=== PATIENT | male | born 1995 | race American Indian/Alaskan Native ===

== ENCOUNTER 2018-03-30 12:58 | Emergency (ER) | payer MEDICAID ==
[2018-03-30 13:05] VITALS: BP 109/75; PULSE 85; RESP 18; TEMP 97.5; O2SAT 98
--- NOTE | 2018-03-30 13:09 | C.PDOC ---
History Of Present Illness Mr. Houston is a 22 year old male with a PMHx of Asthma who presents complaining of "URI" since 2pm yesterday. His symptoms include elevated Temp (Tmax - 100), Sore throat, body aches, dry cough, and chest tightness. He has been using an unspecified "Cold & Flu" medication to treat his symptoms which he states provided moderate relief for his tore throat for 1.5 hours. He denies any headache, chest pain, SOB, abdominal pain, n/v, changes in bowel habits, urinary symptoms. ROS: As stated above PMHx: Asthma PSHx: Dental Surgery x 2 Allergies: NKDA SocialHx: Denies tobacco use, EtOH Use (once a month), admits to occasional marijuana use Meds: Albuterol Rescue IH PMD: Dr. Sancho Ceballos. <Trish Miller - Last Filed: 03/30/18 15:39> <Trish Miller - Last Filed: 03/30/18 15:39> <Abhilash Johansen - Last Filed: 04/01/18 13:33> Time Seen by Provider: 03/30/18 13:09 Chief Complaint (Nursing): Flu-like Symptoms Past Medical History Vital Signs: Last Vital Signs Temp 97.5 F L 03/30/18 13:01 Pulse 85 03/30/18 13:01 Resp 18 03/30/18 13:01 BP 109/75 03/30/18 13:01 Pulse Ox 98 03/30/18 13:01 - Medical History PMH: Asthma Family History: States: Unknown Family Hx - Social History Hx Alcohol Use: Yes Hx Substance Use: Yes - Immunization History Hx Tetanus Toxoid Vaccination: No Hx Influenza Vaccination: No Hx Pneumococcal Vaccination: No <Trish Miller - Last Filed: 03/30/18 15:39> Vital Signs: Last Vital Signs Temp 97.5 F L 03/30/18 13:01 Pulse 85 03/30/18 13:01 Resp 18 03/30/18 13:01 BP 109/75 03/30/18 13:01 Pulse Ox 98 03/30/18 15:55 <Abhilash Johansen - Last Filed: 04/01/18 13:33> Physical Exam - Physical Exam Appears: Non-toxic, No Acute Distress Skin: Normal Color, Warm Head: Atraumatic, Normacephalic Ear(s): Bilateral: TM Obscured By Wax Nose: Normal Oral Mucosa: Moist Tongue: Normal Appearing Lips: Normal Appearing Teeth: Normal Dentition Gingiva: Normal Appearing Throat: Erythema, Exudate, No Mass, Other (enlarged Tonsils. No Hot Potato Voice, no Tonsil Abscess. ) Lymphatic: Adenopathy ((+)Tender Ant. Cervical. No Posterior Cervical Lymphyadenopathy ) Cardiovascular: Rhythm Regular Respiratory: Normal Breath Sounds, No Rales, No Rhonchi Gastrointestinal/Abdominal: Normal Exam, Bowel Sounds, Soft, No Tenderness, No Mass, No Guarding, No Rebound Neurological/Psych: Oriented x3, Normal Speech, Normal Cognition <Trish Miller - Last Filed: 03/30/18 15:39> ED Course And Treatment O2 Sat by Pulse Oximetry: 98 <Trish Miller - Last Filed: 03/30/18 15:39> Medical Decision Making Medical Decision Making: Flu-Like Symptoms/Sore Throat -Rapid Strep-POSITIVE -Rapid Flu - NEGATIVE -Cepacol Lozenges Reassessment Patient is positive for Strep Throat. Currently Afebrile with stable vital signs. No hot potato voice, no tonsilar abscess. Will send home with Amoxicillin ER (Moxatag). 775mg for 10 days. Patient asked to follow up with PCP within 2-3 days. <Trish Miller - Last Filed: 03/30/18 15:39> Disposition Counseled Patient/Family Regarding: Studies Performed, Diagnosis, Need For Followup, Rx Given, Smoking Cessation - Disposition Disposition Time: 15:29 <Trish Miller - Last Filed: 03/30/18 15:39> <Abhilash Johansen - Last Filed: 04/01/18 13:33> - Disposition Referrals: Parish Ceballos MD [Staff Provider] - Disposition: HOME/ ROUTINE Condition: FAIR Additional Instructions: Please take antibiotics to completion even if your symptoms resolve. Please follow up with your primary medical provider within 2-3 days of discharge. 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 (22 yr old male p.w sore throat and uri symptoms. No peritonsillar abscess or hot potatoe voice or posterior lymphdenopathy noted. +Strep. Rx w/ outpt abx. No dysphagia or odynophagia.) <Abhilash Johansen - Last Filed: 04/01/18 13:33>
[2018-03-30] MEDS ORDERED: Benzocaine/Menthol (Cepacol) Lozenge MT ONE (13:42)
[2018-03-30 15:21] LABS: INFLUENZA A B NEGATIVE FOR FLU A/B (NEGATIVE)
== END 2018-03-30 16:02 | disposition home or self-care (01) ==
LOC: C.ER 12:58
DX: J02.0 Streptococcal pharyngitis (principal)

== ENCOUNTER 2018-05-03 18:51 | Emergency (ER) | payer MEDICAID | END 2018-05-03 20:47 | disposition home or self-care (01) | LOC: C.ER 18:51 ==

== ENCOUNTER 2018-05-07 06:33 | Emergency (ER) | payer MEDICAID ==
[2018-05-07 06:41] VITALS: PULSE 67
[2018-05-07] MEDS ORDERED: Sodium Chloride 0.9% 1,000 ML IV STA (07:30)
[2018-05-07] MEDS ORDERED: Sodium Chloride 0.9% 1,000 ML ONE (07:34)
[2018-05-07 08:38] LABS: BASO % 0.7 % (0.0-2.0); EOS # 0.1 K/uL (0.0-0.7); EOS % 1.2 % (0.0-4.0); HEMOGLOBIN 12.6 g/dL (12.0-18.0); LYMPH # 1.4 K/uL (1.0-4.3); LYMPH % 29.9 % (20.0-40.0); MEAN CORPUSCULAR HEMOGLOBIN 29.1 pg (27.0-31.0); MEAN CORPUSCULAR HGB CONC 32.7 g/dL (33.0-37.0); MEAN PLATELET VOLUME 9.5 fL (7.2-11.7); MONO # 0.4 K/uL (0.0-0.8); MONO % 9.2 % (0.0-10.0); NEUT # 2.7 K/uL (1.8-7.0); NRBC % 0.1 % (0.0-2.0); RBC 4.34 Mil/uL (4.40-5.90); RED CELL DISTRIBUTION WIDTH 12.9 % (11.5-14.5); WHITE BLOOD COUNT 4.7 K/uL (4.8-10.8)
[2018-05-07 08:48] LABS: ALB/GLOB RATIO 1.2 (1.0-2.1); ALBUMIN 4.1 g/dL (3.5-5.0); ALT/SGPT 9 U/L (21-72); AST/SGOT 25 U/L (17-59); BLOOD UREA NITROGEN 15 mg/dL (9-20); CALCIUM 9.5 mg/dl (8.6-10.4); GFR NON-AFRICAN AMERICAN > 60; LIPASE 10 U/L (23-300)
[2018-05-07 08:54] LABS: URINE AMORPHOUS SEDIMENT RARE /ul (<OCC); URINE BILIRUBIN NEGATIVE (NEGATIVE); URINE BLOOD NEGATIVE (NEGATIVE); URINE CLARITY Hazy (Clear); URINE COLOR Yellow (YELLOW); URINE GLUCOSE (UA) NORMAL (Normal); URINE LEUKOCYTE ESTERASE NEG Leu/uL (Negative); URINE PROTEIN 1+ mg/dL (NEGATIVE)
[2018-05-07 09:02] VITALS: BP 97/55; RESP 20; TEMP 97.5; O2SAT 98
--- NOTE | 2018-05-07 09:37 | C.PDOC ---
History Of Present Illness 22 y/o male comes in for several episodes of vomiting since yesterday. Patient states that yesterday he was eating some fast food burger and fries, and vomited an hour later. He reports he vomited all night but the vomiting subsided in the morning. Patient denies fever, chills, or diarrhea. Time Seen by Provider: 05/07/18 07:15 Chief Complaint (Nursing): Abdominal Pain History Per: Patient History/Exam Limitations: no limitations Onset/Duration Of Symptoms: Days Current Symptoms Are (Timing): Still Present Past Medical History Reviewed: Historical Data, Nursing Documentation, Vital Signs Vital Signs: Last Vital Signs Temp 97.5 F L 05/07/18 09:01 Pulse 67 05/07/18 09:01 Resp 20 05/07/18 09:01 BP 97/55 L 05/07/18 09:01 Pulse Ox 98 05/07/18 09:01 - Medical History PMH: Asthma Family History: States: No Known Family Hx - Social History Hx Alcohol Use: Yes Hx Substance Use: Yes - Immunization History Hx Tetanus Toxoid Vaccination: No Hx Influenza Vaccination: No Hx Pneumococcal Vaccination: No Review Of Systems Except As Marked, All Systems Reviewed And Found Negative. Constitutional: Negative for: Fever, Chills Gastrointestinal: Positive for: Vomiting. Negative for: Abdominal Pain, Diarrhea Physical Exam - Physical Exam Appears: Non-toxic, No Acute Distress Skin: Warm, Dry Head: Atraumatic, Normacephalic Eye(s): bilateral: Normal Inspection Oral Mucosa: Moist Throat: No Erythema Neck: Supple Cardiovascular: Rhythm Regular, No Murmur Respiratory: Normal Breath Sounds, No Rales, No Rhonchi, No Wheezing Gastrointestinal/Abdominal: Tenderness (mild epigastric tenderness), No Guarding, No Rebound Extremity: Bilateral: Atraumatic, Normal ROM Neurological/Psych: Oriented x3, Normal Speech ED Course And Treatment - Laboratory Results Result Diagrams: 05/07/18 08:26 05/07/18 08:26 Lab Results: Total Bilirubin 0.9 mg/dL (0.2-1.3) 05/07/18 08:26 AST 25 U/L (17-59) 05/07/18 08:26 ALT 9 U/L (21-72) L D 05/07/18 08:26 Alkaline Phosphatase 99 U/L (38-126) 05/07/18 08:26 Total Protein 7.6 g/dL (6.3-8.3) 05/07/18 08:26 Albumin 4.1 g/dL (3.5-5.0) 05/07/18 08:26 Globulin 3.5 gm/dL (2.2-3.9) 05/07/18 08:26 Albumin/Globulin Ratio 1.2 (1.0-2.1) 05/07/18 08:26 Lipase 10 U/L (23-300) L 05/07/18 08:26 Urine Color Yellow (YELLOW) 05/07/18 08:26 Urine Clarity Hazy (Clear) 05/07/18 08:26 Urine pH 7.0 (5.0-8.0) 05/07/18 08:26 Ur Specific [place] 1.028 (1.003-1.030) 05/07/18 08:26 Urine Protein 1+ mg/dL (NEGATIVE) H 05/07/18 08:26 Urine Glucose (UA) Normal mg/dL (Normal) 05/07/18 08:26 Urine Ketones Trace mg/dL (NEGATIVE) 05/07/18 08:26 Urine Blood Negative (NEGATIVE) 05/07/18 08:26 Urine Nitrate Negative (NEGATIVE) 05/07/18 08:26 Urine Bilirubin Negative (NEGATIVE) 05/07/18 08:26 Urine Urobilinogen 4.0 mg/dL (0.2-1.0) 05/07/18 08:26 Ur Leukocyte Esterase Neg Dorian/uL (Negative) 05/07/18 08:26 Urine WBC (Auto) 6 /hpf (0-5) H 05/07/18 08:26 Urine RBC (Auto) 1 /hpf (0-3) 05/07/18 08:26 Amorphous Sediment Rare /ul (<OCC) H 05/07/18 08:26 O2 Sat by Pulse Oximetry: 98 (RA) Pulse Ox Interpretation: Normal Progress Note: Labs and urinalysis ordered. Patient was given IV fluids, protonix, and zofran IV. On re-evaluation, patient is feeling better and tolerating PO. Patient will be discharged home. Disposition - Disposition Referrals: Kimberly Hagen MD [Staff Provider] - Disposition: HOME/ ROUTINE Disposition Time: 09:34 Condition: STABLE Additional Instructions: Follow up with PMD within 1-2 days. Return to ED if feel worse. 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 - Scribe Statement The provider has reviewed the documentation as recorded by the Scribe Rosa Otreo All medical record entries made by the Zafaribshanda were at my direction and personally dictated by me. I have reviewed the chart and agree that the record accurately reflects my personal performance of the history, physical exam, medical decision making, and the department course for this patient. I have also personally directed, reviewed, and agree with the discharge instructions and disposition.
== END 2018-05-07 09:41 | disposition home or self-care (01) ==
LOC: C.ER 06:33
DX: R11.2 Nausea with vomiting, unspecified (principal)
CPT/HCPCS: 80053; 81001; 83690; 85025; 96361; 96374; 96375; 99285; C9113; J2405; J7030

== ENCOUNTER 2018-06-30 11:22 | Emergency (ER) | payer MEDICAID ==
[2018-06-30 11:37] VITALS: BP 101/66; PULSE 61; RESP 18; TEMP 97.4; O2SAT 98
--- NOTE | 2018-06-30 12:19 | RAD ---
Date of service: 06/30/2018 PROCEDURE: Right ring finger radiographs. HISTORY: s/p trauma COMPARISON: None. TECHNIQUE: AP radiograph of the right hand, as well as spot oblique and lateral images of ring finger were obtained. 3 views obtained. FINDINGS: RIGHT RING FINGER: Normal right ring finger, without fracture or focal lesion. Remainder of the right hand (as seen on the AP view) grossly unremarkable. JOINTS: Normal. SOFT TISSUES: Normal. OTHER FINDINGS: None. IMPRESSION: Normal right ring finger radiographs.
--- NOTE | 2018-06-30 12:33 | C.PDOC ---
History Of Present Illness 22 year old male presents to ED with complaint of right ring finger pain for the past 7 days. Patient states that he was playing basketball over the weekend and caught the ball improperly. He states that he noticed swelling and felt pain of the third forth digit. He states that he iced the area when it happened but continues to have pain. He now has noticed a slight deformity in his right ring finger which brings him to the ED. He rates the pain as a 3/10 now. He states that he has not taken anything for pain. Patient denies any other injuries, weakness, numbness, or tingling. Chief Complaint (Nursing): Finger,Hand,&Wrist History Per: Patient History/Exam Limitations: no limitations Onset/Duration Of Symptoms: Days (6) Current Symptoms Are (Timing): Still Present Quality: "Pain" Pain Scale Rating Of: 3 Past Medical History Reviewed: Historical Data, Nursing Documentation, Vital Signs Vital Signs: Last Vital Signs Temp 97.4 F L 06/30/18 11:33 Pulse 61 06/30/18 11:33 Resp 18 06/30/18 11:33 BP 101/66 06/30/18 11:33 Pulse Ox 98 06/30/18 11:33 Primary Care Provider: Sara Hagen - Medical History PMH: Asthma Surgical History: No Surg Hx Family History: States: Unknown Family Hx - Social History Hx Alcohol Use: Yes Hx Substance Use: Yes - Immunization History Hx Tetanus Toxoid Vaccination: No Hx Influenza Vaccination: No Hx Pneumococcal Vaccination: No Review Of Systems Constitutional: Negative for: Fever, Chills, Weakness Musculoskeletal: Positive for: Hand Pain (right ring finger pain ), Other (swelling to the right ring finger) Neurological: Negative for: Weakness, Numbness, Headache (head impact) Physical Exam - Physical Exam Appears: Well, Non-toxic, No Acute Distress Skin: Normal Color, Warm, Dry Head: Atraumatic, Normacephalic Eye(s): bilateral: Normal Inspection Neck: Normal ROM, Supple Chest: Symmetrical, No Deformity Cardiovascular: Rhythm Regular Respiratory: Normal Breath Sounds, No Accessory Muscle Use, No Wheezing Extremity: Normal ROM, Tenderness (slight tenderness to tough on the right ring finger, non-erythematous), Capillary Refill (<2 seconds), Deformity (slight deformity to the 4th digit PIP joint of the right hand, no ecchymosis), No Swelling, Other (neurovascular intact) Extremity: Bilateral: Normal Color And Temperature, Normal ROM Pulses: Left Radial: Normal, Right Radial: Normal Neurological/Psych: Oriented x3, Normal Speech, Normal Cognition, Normal Motor, Normal Sensation ED Course And Treatment O2 Sat by Pulse Oximetry: 98 (in RA) Pulse Ox Interpretation: Normal - Other Rad Right Hand 4th digit X-ray X-Ray: Viewed By Me, Read By Radiologist Interpretation: Date of service: 06/30/2018. PROCEDURE: Right ring finger radiographs. HISTORY: s/p trauma. COMPARISON: None. TECHNIQUE: AP radiograph of the right hand, as well as spot oblique and lateral images of ring finger were obtained. 3 views obtained. FINDINGS: RIGHT RING FINGER: Normal right ring finger, without fracture or focal lesion. Remainder of the right hand (as seen on the AP view) grossly unremarkable. JOINTS: Normal. SOFT TISSUES: Normal. OTHER FINDINGS: None. IMPRESSION: Normal right ring finger radiographs. Medical Decision Making Medical Decision Making: Impression: 22 year old male presents to ED with complaint of right ring finger pain for the past 7 days. Plan: Right hand 4th digit X-ray ordered and reviewed- no dislocation or fracture D/W patient results patient verbalized understanding and is stable for discharge Disposition Counseled Patient/Family Regarding: Studies Performed, Diagnosis, Need For Followup, Rx Given - Disposition Referrals: She Gonzalez MD [Staff Provider] - Disposition: HOME/ ROUTINE Disposition Time: 12:34 Condition: STABLE Additional Instructions: Motrin as needed for pain rest, ice, compression, and elevation follow up with hand specialist if pain persists return to ED if pain worsens Prescriptions: Ibuprofen [Motrin] 600 mg PO Q8 PRN #30 tab PRN Reason: Pain, Moderate (4-7) Instructions: Common Finger Injuries (DC) Forms: [employer] [facility] (Panamanian) - Clinical Impression Clinical Impression: Finger pain, right - PA / HEEL SANDER / Resident Statement MD/DO has reviewed & agrees with the documentation as recorded. (Lori Sigala) - Scribe Statement The provider has reviewed the documentation as recorded by the Scribe (Lori Sigala) All medical record entries made by the Scribe were at my direction and personally dictated by me. I have reviewed the chart and agree that the record accurately reflects my personal performance of the history, physical exam, medical decision making, and the department course for this patient. I have also personally directed, reviewed, and agree with the discharge instructions and disposition.
--- NOTE | 2018-06-30 12:34 | C.PDOC ---
Chief Complaint (Nursing): Finger,Hand,&Wrist Past Medical History Vital Signs: Last Vital Signs Temp 97.4 F L 06/30/18 11:33 Pulse 61 06/30/18 11:33 Resp 18 06/30/18 11:33 BP 101/66 06/30/18 11:33 Pulse Ox 98 06/30/18 11:33 Primary Care Provider: Sara Hagen - Medical History PMH: Asthma Family History: States: Unknown Family Hx - Social History Hx Alcohol Use: Yes Hx Substance Use: Yes - Immunization History Hx Tetanus Toxoid Vaccination: No Hx Influenza Vaccination: No Hx Pneumococcal Vaccination: No ED Course And Treatment O2 Sat by Pulse Oximetry: 98 Disposition Counseled Patient/Family Regarding: Studies Performed, Diagnosis, Need For Followup, Rx Given - Disposition Referrals: She Gonzalez MD [Staff Provider] - Disposition: HOME/ ROUTINE Disposition Time: 12:34 Condition: STABLE Additional Instructions: Motrin as needed for pain rest, ice, compression, and elevation follow up with hand specialist if pain persists return to ED if pain worsens Prescriptions: Ibuprofen [Motrin] 600 mg PO Q8 PRN #30 tab PRN Reason: Pain, Moderate (4-7) Instructions: Common Finger Injuries (DC) - Clinical Impression Clinical Impression: Finger pain, right
== END 2018-06-30 12:41 | disposition home or self-care (01) ==
LOC: C.ER 11:22
DX: M79.644 Pain in right finger(s) (principal); Y93.67 Activity, basketball